=== PATIENT | female | born 1985 | race Caucasian/White ===

== ENCOUNTER 2025-03-15 16:11 | Emergency (ER) | payer OTHER, SELFPAY ==
[2025-03-15 16:14] VITALS: BP 111/72; PULSE 97; RESP 16; TEMP 37.3; O2SAT 97; BMI 24.4
--- NOTE | 2025-03-15 16:49 | CRLHL7_ITS ---
For Patients: As a result of the Century Cures Act, medical imaging exams and procedure reports are released immediately into your electronic medical record. You may view this report before your referring provider. If you have questions, please contact your health care provider. INDICATION: Headache, neck pain, ptosis. TECHNIQUE: CTA head using intravenous contrast with bolus tracking, 3D angiographic rendering using maximum intensity projection (MIP) and images permanently archived. CTA neck using intravenous contrast with bolus tracking, 3D angiographic rendering using maximum intensity projection (MIP) and images permanently archived. FINDINGS: CTA head: There is normal opacification of the intracranial vasculature. There is no large vessel occlusion or significant intracranial stenosis. No aneurysm is identified. CTA neck: There is no significant carotid artery stenosis or dissection. There is no significant vertebral artery stenosis or dissection. IMPRESSION: Unremarkable head CTA. Unremarkable neck CTA. Please note that all CT scans at this facility use dose modulation, iterative reconstruction, and/or weight-based dosing when appropriate to reduce radiation dose to as low as reasonably achievable. Dictated by Jose Alfredo Rivas MD @ 03/15/2025 8:11:50 PM (Electronically Signed)
--- NOTE | 2025-03-15 16:49 | CRLHL7_ITS ---
For Patients: As a result of the Century Cures Act, medical imaging exams and procedure reports are released immediately into your electronic medical record. You may view this report before your referring provider. If you have questions, please contact your health care provider. INDICATION: Right frontal headaches. TECHNIQUE: CT of the head without contrast. Coronal and sagittal reformats are included. COMPARISON: None. FINDINGS: No CT evidence of acute cortical infarct. No loss of jang white matter differentiation. No hyperdense vessels to suggest intracranial thrombus. No acute intracranial hemorrhage. No mass effect or midline shift. No hydrocephalus or extra-axial collections. White matter is within normal limits for age. No acute osseous abnormalities. Mastoid air cells and paranasal sinuses are clear. Normal soft tissues. IMPRESSION: IMPRESSION:1. No CT evidence of acute cortical infarct. No acute intracranial hemorrhage. No other acute intracranial findings. Please note that all CT scans at this facility use dose modulation, iterative reconstruction, and/or weight-based dosing when appropriate to reduce radiation dose to as low as reasonably achievable. Dictated by Filipe Zelaya MD @ 03/15/2025 5:53:59 PM (Electronically Signed)
--- NOTE | 2025-03-15 16:50 | ED.GENADULT ---
HPI - General Adult General Date Seen: 03/15/25 Chief complaint: Headache/Migraine Stated complaint: Migraine Time Seen by Provider: 03/15/25 16:22 History of Present Illness HPI narrative: 39-year-old female presenting to the ER today with her sister for evaluation of a left frontal headache. She has a past medical history of hypothyroidism, on Synthroid but otherwise is pretty healthy. She has a history of occasional headaches but has never really had to go to the doctor for headaches in the past. She does not have a formal diagnosis of ?migraines. She is here with a headache that began about 13 or 14 days ago, on Thursday or Thursday 2 weeks ago. She travels between [place] and [place] for work. She was in [place]. She began have some pain in the left frontal forehead region of her head. Initially was fairly mild. It came on gradually. Initially it seemed to come and go and did seem to improve with [id number]-[id number] headache medications. However it got progressively worse over the next couple of days. It got to the point where is fairly continuous and not very responsive to her [id number]-[id number] medications. She was able to see her primary care provider, in [place], last week, perhaps on Thursday and was diagnosed empirically with migraines. She was given a prescription for Imitrex. She has been using that sporadically and did initially feel some improvement, temporarily, after each dose. However of the days have gone by, the Imitrex seems to be less effective. Now her headache never completely goes away. Last week about 6 or 7 days ago she also had a couple of days where she felt like her left eye was red, felt swollen, and had a little bit of clear drainage. She has also been feeling like her left ear is muffled. She has a history of trouble with her teeth and had some crowns put on 2 teeth on the right side of her mouth about a year ago. Recalling that her dentist that had told her that she might need some work with a tooth on her left upper jaw and right upper jaw, she see her dentist a couple of days ago. They said she might have a crack in her 1 of her left maxillary molars so referred her to an oral surgeon for a root canal. During that time her headaches just been getting worse and more bothersome. It does get a little bit better when she lays down and puts an ice pack on her left forehead but never really goes away. She has been using ibuprofen, Tylenol, Excedrin, Imitrex with temporary and partial relief only. She saw the oral surgeon today and was told that she really did not need a root canal. They oral surgeon encouraged her to come see a physician. She has not had a headache but for the past few days she has had a little bit of stiffness in the back of her neck. No fever. No cough. No nausea or vomiting. No numbness in her legs but she does have occasional tingling in both of her hands and forearms. She also feels like her left forehead is feeling puffy and numb. No slurred speech. She is not having any double vision. She does feel like the vision in her left eye is a little bit watery but is actually more blurry in her right eye than her left. She does not normally have trouble with her eyes. She does not wear glasses. No known carbon monoxide exposure. She recalls that her mother tested positive for COVID just prior to her for leaving for [place]. However the patient has not had any other COVID symptoms. No stuffy nose. No cough. No sore throat. No fever. She has no history of similar headaches. She is not anticoagulated. No head trauma. Her father did have a cerebral aneurysm. Related Data Home Medications ?Medication ?Instructions ?Recorded ?Confirmed levothyroxine 75 mcg tablet 75 mcg PO DAILY 03/15/25 03/15/25 (Synthroid) sumatriptan succinate 25 mg PO PRN 03/15/25 Allergies Allergy/AdvReac Type Severity Reaction Status Date / Time No Known Drug Allergies Allergy Verified 03/15/25 17:17 Exam Narrative: Exam Narrative: Constitutional: Appears well-developed and well-nourished. Alert. Uncomfortable but cooperative and Conversant. Non toxic. HENT: Head: Atraumatic. Nose: Nose normal. Mouth/Throat: Oral mucosa is clear and moist. no trismus. Pharynx normal. Tonsils symmetric. No tonsillar enlargement, erythema, or exudate. Eyes: Conjunctivae normal. No eye redness. No exophthalmos or enophthalmos. No periorbital ecchymosis or swelling. EOM normal. Pupils equal, round, and reactive to light. No scleral icterus. Neck: Normal range of motion. Neck supple. No tracheal deviation present. Cardiovascular: Normal rate, regular rhythm. No gallop. No friction rub. No murmur heard. Symmetric radial artery pulses Pulmonary/Chest: Effort normal. No stridor. No respiratory distress. No wheezes. No rales. No rhonchi . No tenderness. Abdominal: Soft. Bowel sounds normal. No distension. No mass. No tenderness. No rebound. No guarding. Musculoskeletal: RUE: Normal range of motion. No tenderness. No deformity LUE: Normal range of motion. No tenderness. No deformity RLE: Normal range of motion. No edema. No tenderness. No deformity LLE: Normal range of motion. No edema. No tenderness. No deformity Lymph: No cervical adenopathy. Neurological: Alert and oriented to person, place, and time. Mental status normal. Attention normal. Alert and oriented x3. GCS 15. Memory normal. Speech fluent. Cognition normal. Cranial Nerves intact II-XII except she seems to have a little bit of paresis on her left forehead. When I have her raise her eyebrows, the right side of her forehead wrinkles, but the left side does not. Gaze is conjugate. Extraocular movements are normal. No nystagmus. Visual reaves are full to gross confrontation with fingers. I did not formally test gag or visual acuity. EOMI. Palate elevates symmetrically and tongue protrudes in the midline. Strength: 5/5 trapezius on the right and left 5/5 deltoid on the right and left 5/5 biceps on the right and left 5/5 triceps on the right and left 5/5 investor on the right and left 5/5 thumb opposition on the right and left 5/5 finger abduction on the right and left 5/5 hip flexors (L3) on the right and left 5/5 quadriceps (L4) on the right and left 5/5 tibialis anterior on the right and left 5/5 EHL (L5) on the right and left 5/5 gastrocnemius (S1) on the right and left 5/5 hamstring on the right and left Sensation intact to light touch in both upper extremities (C4-T1) Sensation intact to light touch in Both lower extremities (L4-S1). Finger to nose and coordination normal. Gait normal. Romberg normal Skin: Skin is warm and dry. No rash noted. No pallor. Normal capillary refill. Psychiatric: Normal mood. Flat affect, I think due to pain Const: Vital Signs, click to edit/add: Vital Signs - 24 hr 03/15/25 16:14 03/15/25 18:12 Temperature 99.1 F Pulse Rate [Pulse Oximeter] 97 79 Respiratory Rate 16 16 Blood Pressure [Ri ght Upper Arm] 111/72 98/62 Pulse Oximetry 97 98 Oxygen Delivery Me thod Room Air Course Course ED Course: Recheck-pain down to about a 5/10 after migraine cocktail. Droperidol order. Reevaluation(s) Reevaluation #1: Recheck-headache improving after droperidol. Patient is a awake but does say she feels sleepy. Discussed this is probably a side effect of the droperidol. Reevaluation #2: Discussed with neurology through [facility], Dr. Saba. We discussed the patient does not have a history of similar headaches but has been having of fairly severe left frontal headache for the past 2 weeks or so that became gradually. CT and CTA are negative. She did have a few days of some redness of the left eye and drainage but that is gone now. At this point he and I agree that that she does not need a transfer to the [facility] for emergent brain MRI tonight but that in the setting of a new headache, MRI is indicated. Will be appropriate for to get close outpatient follow-up and do an MRI in the outpatient setting and/or if she has an intractable headache to be admitted and have the MRI done tomorrow here in [place]. Dr. Saba also recommends that her headache will get better with meds we could try 100% oxygen in case this is a cluster headache or injectable Imitrex if it might be a migraine. I recheck the patient said her headache is quite a bit better now. She would like to go home and rest. I had a detailed discussion with the patient and her sister that so far workup is reassuring. CT scan and CT angiogram are negative. However there are conditions that could be causing her headache that are not visible on that imaging and that follow-up with primary care and further imaging of MRI would be indicated. We also note that she has a low-grade fever. We discussed possible lumbar puncture but at this point the suspicion for a bacterial meningitis is extremely low. This could potentially be a chronic headache from viral meningitis. At this point we prefer to hold off on lumbar puncture, using shared decision-making. However her headache worsens, she will return to the ER with strongly consider LP to check CSF as well as opening pressure. The patient her sister think that she will be able to get an appointment with the [facility] in [place] within the next couple of days to arrange outpatient MRI and further workup. Precautions for return to the ER reviewed. Vital Signs Vital signs: Initial Vital Signs Temperature 99.1 F 03/15/25 16:14 Temperature Source Temporal Artery Scan 03/15/25 16:14 Pulse Rate 97 03/15/25 16:14 Respiratory Rate 16 03/15/25 16:14 Blood Pressure 111/72 03/15/25 16:14 Blood Pressure Mean 85 03/15/25 16:14 Blood Pressure Position Sitting 03/15/25 16:14 Pulse Oximetry 97 03/15/25 16:14 Oxygen Delivery Method Room Air 03/15/25 16:14 Vital Signs Temperature 99.1 F 03/15/25 16:14 Pulse Rate 97 03/15/25 16:14 Respiratory Rate 16 03/15/25 16:14 Blood Pressure 111/72 03/15/25 16:14 Pulse Oximetry 97 03/15/25 16:14 Oxygen Delivery Method Room Air 03/15/25 16:14 Temperature 99.1 F 03/15/25 16:14 Pulse Rate 79 03/15/25 18:12 Respiratory Rate 16 03/15/25 18:12 Blood Pressure 98/62 03/15/25 18:12 Pulse Oximetry 98 03/15/25 18:12 Oxygen Delivery Method Room Air 03/15/25 16:14 Medications Administered Medications: Discontinued Medications Generic Name Dose Route Start Last Admin Trade Name Freq PRN Reason Stop Dose Admin Diphenhydramine HCl 12.5 mg 03/15/25 16:48 03/15/25 17:33 Diphenhydramine 50 Mg/Ml Inj IVP 03/15/25 16:49 12.5 mg ONCE ONE Administration Droperidol 1.25 mg 03/15/25 18:38 03/15/25 18:47 Droperidol 2.5 Mg/Ml Inj IV 03/15/25 18:39 1.25 mg ONCE ONE Administration Sodium Chloride 1,000 mls @ 1,000 mls/hr 03/15/25 17:00 03/15/25 18:12 0.9 % Sodium Chloride 1000 Ml IV 03/15/25 17:59 Infused .Q1H CHANDANA Infusion Ketorolac Tromethamine 15 mg 03/15/25 16:48 03/15/25 17:09 Ketorolac 15 Mg/Ml Inj IVP 03/15/25 16:49 15 mg ONCE ONE Administration Prochlorperazine 10 mg 03/15/25 16:48 03/15/25 17:33 Prochlorperazine 5 Mg/Ml Vial IV 03/15/25 16:49 10 mg ONCE ONE Administration Medical Decision Making Lab Data Labs: Lab Results 03/15/25 03/15/25 Range/Units 16:50 17:05 WBC 6.18 (4.50-11.00) K/uL RBC 4.67 (4.00-5.20) m/uL Hgb 13.6 (12.0-16.0) gm/dL Hct 40.7 (33.0-51.0) % MCV 87 (80-100) fL MCH 29 (26-34) pg MCHC 33 (32-36) gm/dL RDW Coeff of Chandni 11.8 (11.5-15.5) % Plt Count 295 (140-440) K/uL Neut % (Auto) 58.5 (42.0-72.0) % Lymph % (Auto) 29.8 (20-44) % [place] % (Auto) 8.7 (0.0-11.0) % Eos % (Auto) 2.3 (0.0-7.0) % Baso % (Auto) 0.5 (0.0-3.0) % Neut # (Auto) 3.62 (1.7-7.0) K/uL Lymph # (Auto) 1.84 (0.90-2.90) K/uL [place] # (Auto) 0.50 (0.00-0.90) K/UL Eos # (Auto) 0.14 (0.00-0.50) K/uL Baso # (Auto) 0.03 (0.00-0.30) K/uL Abs Immat Gran (auto) 0.01 (0.00-0.30) K/uL Imm/Tot Granulo (auto) 0.2 % INR 0.93 (0.91-1.10) Sodium 139 (135-149) mmol/L Potassium 3.8 (3.6-5.1) mmol/L Chloride 105 (96-114) mmol/L Carbon Dioxide 25 (20-32) mmol/L Anion Gap 9 (7-15) mEq/L BUN 14 (5-24) mg/dL Creatinine 0.8 (0.5-1.5) mg/dL Estimated Creat Clear 89.26 Estimated GFR 97 ml/min Glucose 119 H (60-115) mg/dL Lactate 1.3 (0.5-1.9) mmol/L Calcium 9.1 (8.4-10.6) mg/dL HCG, Qual Negative (Negative) SARS-CoV-2 (PCR) Negative SARS-CoV-2 (Negative) Influenza Type A (PCR) Negative PCR FLU A (Negative) Influenza Type B (PCR) Negative PCR FLU B (Negative) Imaging Data CT scan - head: Attestation: I have reviewed the pertinent imaging results. My impression: No obvious acute bleed or edema Radiologist's impression: IMPRESSION:1. No CT evidence of acute cortical infarct. No acute intracranial hemorrhage. No other acute intracranial findings. CT angiogram head and neck: Attestation: I have reviewed the pertinent imaging results. Radiologist's impression: Findings: INTRACRANIAL ANGIOGRAM: Anterior circulation: No flow-limiting stenosis or aneurysm. Posterior circulation: No flow-limiting stenosis or aneurysm. Dural venous sinuses: Patent. Additional comment: None. EXTRACRANIAL ANGIOGRAM: Proximal great vessels: No flow-limiting stenosis or dissection. Cervical vessels: No flow-limiting stenosis or dissection. Additional comment: None. NECK: Soft tissues: Normal. Bones: Normal. Lung apices: Clear. Additional comment: None. Impression: No flow-limiting stenosis, occlusion or aneurysm in the intracranial and extracranial circulations. Discharge Plan Discharge Clinical Impression: Headache Patient Disposition: Home, Self-Care Condition: Stable Instructions: Acute Headache (DC) Additional Instructions: As we discussed, please return to the ER right away if you have worsening headache, uncontrolled vomiting, high fever, loss of vision or double vision, or any other concerns. Please call the [facility] in [place] tomorrow morning to schedule an ER follow-up visit. If you are not able to get into the [facility] or other doctors, please return to the ER for recheck. Use caution tonight. The medications were given weak you drowsy. Do not drive for 6 hours Prescriptions: No Action levothyroxine [Synthroid] 75 mcg tablet 75 mcg PO DAILY sumatriptan succinate 25 mg PO PRN Follow Up/Referrals: Provider,Not a Local [Primary Care Provider, Family Practice] Stand Alone Forms: [employer] Info Instructions
[2025-03-15 17:03] LABS: Lactate* 1.3 mmol/L (0.5-1.9)
[2025-03-15 17:05] LABS: Hematocrit* 40.7 % (33.0-51.0); Hemoglobin* 13.6 gm/dL (12.0-16.0); Immature Granulocytes Abs Auto 0.01 K/uL (0.00-0.30); Immature Granulocytes Pct Auto 0.2 %; Lymphocytes Absolute Auto 1.84 K/uL (0.90-2.90); Mean Corpuscular HGB Conc 33 gm/dL (32-36); Mean Corpuscular Hemoglobin 29 pg (26-34); Mean Corpuscular Volume 87 fL (80-100); RDW Coefficient of Variation % 11.8 % (11.5-15.5); Red Blood Count* 4.67 m/uL (4.00-5.20); White Blood Count* 6.18 K/uL (4.50-11.00)
[2025-03-15 17:07] LABS: Slide Review Reflex No
[2025-03-15 17:27] LABS: INR 0.93 (0.91-1.10); Prothrombin Time 13.2 Seconds
[2025-03-15] MEDS: PROCHLORPERAZINE 5 MG/ML VIAL 10 MG IV (17:33)
[2025-03-15 17:40] LABS: Chloride* 105 mmol/L (96-114); Potassium* 3.8 mmol/L (3.6-5.1); Sodium* 139 mmol/L (135-149)
[2025-03-15 17:43] LABS: Anion Gap 9 mEq/L (7-15); Blood Urea Nitrogen* 14 mg/dL (5-24); Calcium* 9.1 mg/dL (8.4-10.6); Carbon Dioxide* 25 mmol/L (20-32); Creatinine* 0.8 mg/dL (0.5-1.5); Est. Creatinine Clearance* 89.26; Estimated Glomerular Filt Rate 97 ml/min; Glucose* 119 mg/dL (60-115)
[2025-03-15 17:46] LABS: PCR FLU A Negative PCR FLU A (Negative); PCR FLU B Negative PCR FLU B (Negative); SARS PCR* Negative SARS-CoV-2 (Negative)
[2025-03-15 18:08] LABS: HCG Qualitative Serum* Negative (Negative)
[2025-03-15 18:12] VITALS: BP 98/62; PULSE 79; RESP 16; O2SAT 98
== END 2025-03-15 19:49 | disposition home or self-care (01) ==
PROVIDERS: Emergency Provider Emergency Medicine
DX: R51.9 Headache, unspecified (principal); Z82.49 Family history of ischemic heart disease and other diseases of the circulatory system
CPT/HCPCS: 36415; 70450; 70496; 70498; 80048; 83605; 84703; 85025; 85610; 87631; 96374; 96375; 99283; 99284; 99285; J0780; J1200; J1790; J1885; J7030; Q9967

== ENCOUNTER 2025-03-24 10:13 | Outpatient (CLI) | payer OTHER, SELFPAY ==
--- NOTE | 2025-03-24 10:15 | CRLHL7_ITS ---
For Patients: As a result of the Century Cures Act, medical imaging exams and procedure reports are released immediately into your electronic medical record. You may view this report before your referring provider. If you have questions, please contact your health care provider. Indication: Migraine headaches. Technique: Noncontrast sagittal T1, axial FLAIR, T2, diffusion weighted sequences are provided. Compared to prior study from March 15, 2025 Findings: The ventricles, sulci and gyri are normal size, shape and contour for age. The midline structures are centrally located with no evidence of shift. There are no suspicious intra or extra-axial fluid collections. No region of restricted diffusion. Expected flow voids in the cavernous carotids and basilar artery. Impression: 1. No radiographic evidence of acute intracranial abnormalities. Dictated by Aaron Hudson MD @ 03/24/2025 1:52:38 PM (Electronically Signed)
== END 2025-03-24 10:14 | disposition home or self-care (01) ==
LOC: MRI 10:14
PROVIDERS: PCP Physician Assistant Medical; Visit Provider Physician Assistant Medical
DX: G43.909 Migraine, unspecified, not intractable, without status migrainosus (principal)
CPT/HCPCS: 70551